=== PATIENT | male | born 1970 | race Caucasian/White ===

== ENCOUNTER 2020-08-19 11:56 | Emergency (ER) | payer SELFPAY ==
[2020-08-19 13:15] LABS: HEMOGLOBIN 17.3 gm/dl (14.0-17.5); RED BLOOD COUNT 5.75 M/UL (4.20-5.50); WHITE BLOOD COUNT 5.4 K/UL (4.5-11.0)
[2020-08-19 13:45] LABS: BUN/CREATININE RATIO 13 (0-10)
[2020-08-19] MEDS ORDERED: PRINIVIL10 MG PO (14:41)
== END 2020-08-19 14:55 | disposition home or self-care (01) ==
LOC: ER1 11:56
PROVIDERS: Family Medicine
DX: I10 Essential (primary) hypertension (principal); F17.290 Nicotine dependence, other tobacco product, uncomplicated
CPT/HCPCS: 36415; 71046; 80053; 82550; 82553; 83874; 84484; 85025; 93005; 99285

== ENCOUNTER 2021-01-10 10:44 | Emergency (ER) | payer BC ==
[~2021-01-10 10:44] MED LIST: PRINIVIL10 MG PO
[2021-01-10 11:23] LABS: HEMOGLOBIN 16.8 gm/dl (14.0-17.5); RED BLOOD COUNT 5.49 M/UL (4.20-5.50); WHITE BLOOD COUNT 8.1 K/UL (4.5-11.0)
[2021-01-10 11:50] LABS: BUN/CREATININE RATIO 25 (0-10)
[2021-01-10] MEDS ORDERED: ZOFRAN4 MG PO (14:15)
[2021-01-10] MEDS ORDERED: BENTYL 20MG TAB20 MG PO (14:15)
== END 2021-01-10 14:25 | disposition home or self-care (01) ==
LOC: ER1 10:44
PROVIDERS: Physician Assistant
DX: R10.11 Right upper quadrant pain (principal); R10.12 Left upper quadrant pain; R11.2 Nausea with vomiting, unspecified; R19.7 Diarrhea, unspecified; I10 Essential (primary) hypertension; Z79.899 Other long term (current) drug therapy
CPT/HCPCS: 80053; 82550; 82553; 83690; 83874; 84484; 85025; 93005; 96372; 96374; 96375; 99284; J0500; J2270; J2405; Q9967

== ENCOUNTER → 2021-10-05 | Outpatient (CLI) | payer BC ==
[~2021-10-05] MED LIST changes: +BENTYL 20MG TAB20 MG PO; +ZOFRAN4 MG PO
[2021-10-05 08:15] LABS: HEMOGLOBIN 14.3 gm/dl (14.0-17.5); RED BLOOD COUNT 4.98 M/UL (4.20-5.50); WHITE BLOOD COUNT 6.8 K/UL (4.5-11.0)
[2021-10-05 08:30] LABS: BUN/CREATININE RATIO 19 (0-10)
== END ==
LOC: LAB 07:34
PROVIDERS: Nurse Practitioner Family
DX: Z12.5 Encounter for screening for malignant neoplasm of prostate (principal); I10 Essential (primary) hypertension; E78.5 Hyperlipidemia, unspecified; R73.9 Hyperglycemia, unspecified; M10.9 Gout, unspecified
CPT/HCPCS: 36415; 80053; 80061; 81001; 83036; 84153; 84439; 84443; 84550; 85027

== ENCOUNTER 2021-10-23 05:03 | Emergency (ER) | payer BC ==
[2021-10-23 05:36] LABS: HEMOGLOBIN 14.8 gm/dl (14.0-17.5); WHITE BLOOD COUNT 5.1 K/UL (4.5-11.0)
[2021-10-23 05:50] LABS: BUN/CREATININE RATIO 16 (0-10)
== END 2021-10-23 06:03 | disposition home or self-care (01) ==
LOC: ER1 05:03
PROVIDERS: Physician Assistant
DX: I10 Essential (primary) hypertension (principal); E11.9 Type 2 diabetes mellitus without complications
CPT/HCPCS: 80048; 85025; 93005; 99283